=== PATIENT | male | born 1945 | race Caucasian/White ===

== ENCOUNTER → 2016-10-29 12:48 | Outpatient (CLI) | payer MEDICARE, OTHER ==
[2010-03-21 09:24] VITALS: BMI 38.3
== END | disposition home or self-care (01) ==
LOC: D.RT 12:48
DX: J45.909 Unspecified asthma, uncomplicated (principal)

== ENCOUNTER → 2017-01-22 11:30 | Outpatient (CLI) | payer MEDICARE, OTHER ==
[2010-03-21 09:24] VITALS: BMI 38.3
== END | disposition home or self-care (01) ==
LOC: D.CT 11:30
DX: I65.23 Occlusion and stenosis of bilateral carotid arteries (principal)

== ENCOUNTER 2017-02-16 07:57 | Outpatient (CLI) | payer MEDICARE, OTHER ==
[~2017-02-16] VITALS: Ht 182.9 cm; Wt 128.2 kg
--- NOTE | ~2017-02-16 | HEMODYNAMI ---
PATIENT:PARADISE BAR MEDICAL RECORD: [id number] : 49 LOCATION:D.CAT ADMISSION DATE: 02/16/17 Generatedon:02/16/201711:13 Patient name: PARADISE BAR Patient #: [id number] SSN: : 1945 Date of study: 02/16/2017 Page: Of Hemodynamic Procedure Report Patient Data Patient Demographics Procedure consent was obtained First Name: PARADISE Gender: Male Last Name: YOSVANY : 1945 [facility] Initial: C Age: 71 year(s) Patient #: [id number] Race: Additional ID: [id number] Contact details Address: [place] [address] State: [place] City: [place] Zip code: [address] Past Medical History Allergies Allergen Reaction Date Comments Reported Other allergy 02/16/2017 cRESTOR, gABAPENTIN, PREDNISONE Admission Admission Data Admission Date: 02/16/2017 Admission Time: 7:57 Admit Source: Other Insurance Payor: Medicare Room #: [facility] #: [id number] Height (in.): 72 BSA: 2.46 (m2) Height (cm.): 182.88 BMI: 38.11 (kg/m2) Weight (lbs.): 281 Weight (kg.): 127.46 Medications upon Admission Medications Dosage Times Administered Last Remarks per Delivery Day Date and Time Aspirin (any) Lab Results Lab Result Date: 02/16/2017 Lab Result Time: 0:00 Biochemistry Name Units Result Min Max BUN mg/dl 11 --(-*--)-- 7 18 Creatinine mg/dl 1.2 --(---*)-- 0.6 1.3 CBC Name Units Result Min Max Hemoglobin g/dl 14.1 --(*---)-- 13.5 17.5 Procedure Procedure Types Cath Procedure Diagnostic Procedure [facility] w/Coronaries FFR/IVUS Intra-Coronary IVUS Initial IVUS Additional x2 PCI Procedure Coronary Stent Initial Procedure Description Procedure Date Procedure Date: 02/16/2017 Procedure Start Time: 10:37 Procedure End Time: 11:11 Procedure Staff Name Function Albaro Grady MD Performing Physician Abigail Perez RT Scrub Jeanna Palmer RN Nurse Johan Davis RT Monitor Procedure Data Cath Procedure Fluoroscopy Diagnostic fluoroscopy Total fluoroscopy Time: 5 time: 5 min min Diagnostic fluoroscopy Total fluoroscopy dose: dose: 1318 mGy 1318 mGy Contrast Material Contrast Material Type Amount (ml) Isovue 300 131 Entry Location Entry Primary Successful Side Size Upsize Upsize Entry Closure Succes sful Closure Location (Fr) 1 (Fr) 2 (Fr) Remarks Device Remarks Femoral Right 5 Fr 6 Fr Exoseal artery Short Estimated blood loss: 10 ml Diagnostic catheters Device Type Used For End Catheter Placement Cordis 5Fr Pigtail Procedure Catheter (MP) Cordis 5Fr JL 4.0 Procedure Catheter (MP) Cordis 5Fr 3DRC Catheter Procedure (MP) Procedure Medications Medication Administration Route Dosage Oxygen NC 2 l/min Lidocaine 2% added to field 20 Heparin Flush Bag added to field 2 bags (1000units/500ml NS) 0.9% NaCl I.V. 100 ml/hr Versed I.V. 1 mg Fentanyl I.V. 50 mcg Versed I.V. 1 mg Fentanyl I.V. 50 mcg Versed I.V. 1 mg Fentanyl I.V. 50 mcg Radial Cocktail added to field 1 syringe (Verapomil 2mg/Nitro 400mcg/Heparin 1500units) Versed I.V. 1 mg Fentanyl I.V. 50 mcg Heparin Bolus I.V. 4000 units Plavix P.O. 75 mg Hemodynamics Rest BSA: 2.46 (m2) HGB: 14.1 (g/dl) O2 Consumption: Estimated: 273.87 (ml/min) O2 Co nsumption indexed: Estimated:111.33 (ml/min/m) Heart Rate: 58 (bpm) Pressure Samples Time Site Value (mmHg) Purpose Heart Use Rate(bpm) 10:44 LV 94/23,44 Snapshot 67 Snapshots Pre Cath Intra NCS Post Cath Vital Signs Time Heart Resp SPO2 etCO2 [id number] NIBP (mmHg) Rhythm Pain Sedation Rate (ipm) (%) (mmHg) (mmHg) Status Level (bpm) 10:16:01 56 18 92 0 0 124/69(96) NSR 0 (11) 10(A) , No pain 10:20:13 56 20 94 0 0 126/71(93) NSR 0 (11) 10(A) , No pain 10:24:31 58 18 93 0 0 141/59(76) NSR 0 (11) 10(A) , No pain 10:28:43 61 18 94 0 0 129/67(80) NSR 0 (11) 10(A) , No pain 10:32:57 59 25 92 0 0 122/72(96) NSR 0 (11) 10(A) , No pain 10:37:05 59 30 94 0 0 124/82(107) NSR 0 (11) 10(A) , No pain 10:41:11 61 25 93 0 0 118/91(105) NSR 0 (11) 9(A) , No pain 10:45:21 62 25 93 0 0 127/70(105) NSR 0 (11) 9(A) , No pain 10:49:33 68 30 94 0 0 133/79(109) NSR 0 (11) 9(A) , No pain 10:53:40 65 23 92 0 0 124/79(105) NSR 0 (11) 9(A) , No pain 10:57:52 63 23 94 0 0 114/75(97) NSR 0 (11) 9(A) , No pain 11:02:02 66 18 94 0 0 115/70(95) NSR 0 (11) 9(A) , No pain 11:06:12 63 32 93 0 0 122/70(94) NSR 0 (11) 10(A) , No pain 11:10:22 59 22 94 0 0 118/75(92) NSR 0 (11) 10(A) , No pain Medications Time Medication Route Dose Verified Delivered Reason Note s Effectiveness by by 10:14:23 Oxygen NC 2 l/min Albaro Meeks used for Miguel A Palmer tailor women's garment alteration 10:14:29 Lidocaine 2% added 20ml Albaro Irvin for local to vial Miguel A Grady MD anesthetic field 10:14:36 Heparin Flush added 2 bags Albaro Irvin used for Bag to Miguel A Grady MD procedure (1000units/500ml field NS) 10:14:46 0.9% NaCl I.V. 100 Albaro Meeks Per physician ml/hr Miguel A Palmer RN 10:35:57 Radial Cocktail added 1 Albaro Buffie not (Verapomil to syringe Miguel A Palmer RN used, 2mg/Nitro field femoral 400mcg/Heparin obtained 1500units) 10:36:30 Versed I.V. 1 mg Albaro Buffie for sedation Miguel A Palmer RN 10:36:34 Fentanyl I.V. 50 mcg Albaro Buffie for sedation Miguel A Palmer RN 10:38:52 Versed I.V. 1 mg Albaro Buffie for sedation Miguel A Palmer RN 10:38:56 Fentanyl I.V. 50 mcg Albaro Buffie for sedation Miguel A Palmer RN 10:43:46 Versed I.V. 1 mg Albaro Buffie for sedation Miguel A Palmer RN 10:43:50 Fentanyl I.V. 50 mcg Albaro Buffie for sedation Miguel A Palmer RN 10:47:29 Versed I.V. 1 mg Albaro Buffie for sedation Miguel A Palmer RN 10:47:33 Fentanyl I.V. 50 mcg Albaro Enriquezie for sedation Miguel A Palmer RN 10:54:16 Heparin Bolus I.V. 4000 Albarolenora Enriquezie for veri fied units Miguel A Palmer RN anticoagulation with dr grady 11:04:29 Plavix P.O. 75 mg Albaro Meeks for Miguel A Palmer RN antiplatelet therapy Procedure Log Time Note 9:55:16 Admit Source: Other 9:58:05 Patient Height : 72 cm 9:58:15 Patient Weight : 281 kg 9:58:16 Insurance Payor : Medicare 10:01:06 Diagnostic Cath Status : Elective 10:01:39 Abigail Perez RT(R) sent for patient. Start room use. 10:01:41 Time tracking: Regular hours 10:01:47 Plan of Care:Hemodynamics will remain stable., Cardiac rhythm will remain stable., Comfort level will be maintained., Respiratory function will remain adequate., Patient/ family verbilizes understanding of procedure., Procedure tolerated without complication., Recovers from procedure without complications.. 10:02:47 Patient allergic to Other allergycRESTOR, gABAPENTIN, PREDNISONE 10:02:57 Is the patient allergic to Iodine/contrast media? No. 10:14:23 Oxygen 2 l/min NC was administered by Buffie Palmer RN; used for procedure; 10:14:29 Lidocaine 2% 20ml vial added to field was administered by Albaro Grady MD; for local anesthetic; 10:14:36 Heparin Flush Bag (1000units/500ml NS) 2 bags added to field was administered by Albaro Grady MD; used for procedure; 10:14:46 0.9% NaCl 100 ml/hr I.V. was administered by Jeanna Palmer RN; Per physician; 10:14:56 Vital chart was started 10:15:04 Patient received from Pre/Post Procedure Room to CCL 1 Alert and oriented. Tansferred to table in Supine position. 10:20:27 Warm blankets applied, and latanya hugger turned on for patient comfort. 10:20:28 Correct patient and procedure confirmed by team. 10:20:30 Signed procedure consent form obtained from patient. 10:20:32 ECG and BP/O2 sat monitors applied to patient. 10:20:33 Baseline sample Acquired. 10:20:43 Rhythm: sinus bradycardia 10:20:52 Full Disclosure recording started 10:21:10 H&P Date Dictated: 02/02/2017 Within 30 days and on chart., H&P Addendum completed by physician on day of procedure. (MUST COMPLETE FOR ALL OUTPATIENTS). 10:21:13 Pre-procedure instructions explained to patient. 10:21:14 Pre-op teaching completed and patient verbalized understanding. 10:21:18 Family in waiting room. 10:21:21 Patient NPO since Midnight. 10:21:31 Is patient on blood thinner?Yes 10:21:35 ACC The patient was administered the following blood thiners within the last 24 hours: ACCPlavix 10:22:08 Patient diabetic? No. 10:22:17 ----Pre-sedation anethsthesia assessment.---- 10:22:20 Previous problem with sedation/anesthesia? No ? 10:22:21 Snore? Yes 10:22:24 Sleep apnea? Yes 10:22:26 Deviated septum? No 10:22:27 Opens mouth fully? Yes 10:22:28 Sticks out tongue? Yes 10:22:39 Airway obstruction? Yes ASTHMA 10:22:53 Dentures? No ? 10:22:58 Pre procedure: right dorsailis pedis pulse 1+ Palpable, but thready & weak; easily obliterated 10:23:04 Patient pain scale 0/10 ?. 10:23:17 IV patent on arrival in left wrist with 0.9% NaCl at O. 10::06 Lab Result : BUN 11 mg/dl 10:: Lab Result : Creatinine 1.2 mg/dl 10::06 Lab Result : Hemoglobin 14.1 g/dl 10::10 Lab results completed and on chart. 10::17 Right Radial & Right Groin area was prepped with chlora-prep and draped in sterile fashion 10:: Alarms reviewed by R. N. 10:26:24 Sharps counted by scrub and verified by R.N. 10:32:20 Zero performed for pressure channel P1 10:35:47 Use device set Radial Dx 10:35:49 Acist Syringe opened to sterile field. 10:35:49 Medline Cath Pack opened to sterile field. 10:35:50 Bag Decanter opened to sterile field. 10:35:51 St Asim 260cm J .035 wire opened to sterile field. 10:35:51 Acist Hand Control opened to sterile field. 10:35:52 Acist Manifold opened to sterile field. 10:35:52 Tegaderm 4 x 4 opened to sterile field. 10:35:57 Radial Cocktail (Verapomil 2mg/Nitro 400mcg/Heparin 1500units) 1 syringe added to field was administered by Jeanna Palmer RN; ; not used, femoral obtained 10:36:02 Procedure started. 10:36:07 Physician arrived 10:36:08 --------ALL STOP TIME OUT------ 10:36:08 Final Timeout: patient, procedure, and site verified with staff and physician. All members of the team are in agreement. 10:36:11 Right Radial & Right Groin site verified by team. 10:36:15 Physical assessment completed. ASA score P 2 - A patient with mild systemic disease as per Albaro Grady MD. 10:36:18 Sedation plan: IV Moderate Sedation Versed, Fentanyl 10:36:30 Versed 1 mg I.V. was administered by Jeanna Palmer RN; for sedation; 10:36:34 Fentanyl 50 mcg I.V. was administered by Jeanna Palmer RN; for sedation; 10:37:15 Local anesthetic to right radial artery with Lidocaine 2% by Albaro Grady MD.INITIAL ACCESS ONLY 10:38:52 Versed 1 mg I.V. was administered by Jeanna Palmer RN; for sedation; 10:38:56 Fentanyl 50 mcg I.V. was administered by Jeanna Palmer RN; for sedation; 10:41:42 UNABLE TO ACCESS THE RADIAL 10:42:33 Terumo 5Fr Omer Sheath opened to sterile field. 10:42:40 Local anesthetic to right femoral artery with Lidocaine 2% by Albaro Grady MD.ADDITIONAL ACCESS 10:42:53 Use device set Femoral Dx 10:43:18 Diagnostic Infinity 5Fr Multipack catheter opened to sterile field. 10:43:43 A 5 Fr sheath was inserted into the Right Femoral artery 10:43:46 Versed 1 mg I.V. was administered by Jeanna Palmer RN; for sedation; 10:43:50 Fentanyl 50 mcg I.V. was administered by Jeanna Palmer RN; for sedation; 10:43:52 A Cordis 5Fr Pigtail Catheter (MP) was advanced over the wire and used for Procedure. 10:44:22 LV hemodynamics recorded. 10:44:24 LV gram done using GORE 10:44:31 EF : 60 % 10:44:32 Catheter removed. 10:44:39 A Cordis 5Fr JL 4.0 Catheter (MP) was advanced over the wire and used for Procedure. 10:45:53 LCA angiography performed. 10:47:01 Catheter removed. 10:47:21 A Cordis 5Fr 3DRC Catheter (MP) was advanced over the wire and used for Procedure. 10:47:29 Versed 1 mg I.V. was administered by Jeanna Palmer RN; for sedation; 10:47:33 Fentanyl 50 mcg I.V. was administered by Jeanna Palmer RN; for sedation; 10:47:59 RCA angiography performed. 10:48:48 Catheter removed. 10:48:49 Proceeding to intervention. 10:49:25 Terumo 6Fr Omer Sheath opened to sterile field. 10:49:26 Merit BasixCompak Inflation Kit opened to sterile field. 10:49:26 Jaffe Whisper J 300cm 0.014 guide wire opened to sterile field. 10:49:53 Sheath upsized to a 6 Fr Short. 10:50:07 [place] IVUS Catheter opened to sterile field. 10:50:21 Cordis 6FR XBLAD 4.0 guide catheter opened to sterile field. 10:51:26 6 Fr XBLAD 4 guide catheter was inserted over the wire 10:52:32 WHISPER wire advanced. 10:52:55 Procedure type changed to Cath procedure, Diagnostic procedure, LHC, LHC w/Coronaries, FFR/IVUS, Intra-Coronary IVUS Initial, IVUS Additional x2, PCI procedure, Coronary Stent Initial 10:52:59 FFR/IVUS 10:53:00 IVUS catheter advanced over wire. 10:53:05 Wire advanced across lesion. 10:54:08 IVUS pass to LMCA lesion performed. 10:54:11 IVUS catheter removed over wire. 10:54:16 Heparin Bolus 4000 units I.V. was administered by Jeanna Palmer RN; for anticoagulation; verified with dr grady 10:57:42 Wire redirected to CIRCUMFLEX. 10:57:49 IVUS catheter advanced over wire. 10:57:52 IVUS pass to Circ lesion performed. 10:57:53 Wire redirected to LAD. 10:58:00 IVUS catheter advanced over wire. 10:58:04 IVUS pass to LAD lesion performed. 10:58:07 IVUS catheter removed over wire. 10:59:08 Inflation Number: 1 A Biofreedom 3.5 x 18 stent (No Cost Implant) was prepped and advanced across the Prox LAD. The stent was deployed at 13 GEGE for 0:10 (min:sec). 10:59:18 Stent catheter was removed intact over wire. 10:59:19 Wire removed. 10:59:20 Guide catheter removed. 10:59:33 Cordis 6Fr Exoseal opened to sterile field. 10:59:49 Sheath removed intact; hemostasis achieved with Exoseal to the Right Femoral artery. 11:04:14 Procedure ended.(Physican Out) 11:04:29 Plavix 75 mg P.O. was administered by Jeanna Palmer RN; for antiplatelet therapy; 11:05:13 Fluoroscopy time 05.00 minutes. 11:05:21 Fluoroscopy dose: 1318 mGy 11:05:21 Flurop Dose total: 1318 11:05:29 Contrast amount:Isovue 300 131ml. 11:05:32 Sharps counted by scrub and verified by R.N. 11:05:35 Insertion/operative site no bleeding no hematoma. 11:05:38 Post-op/insertion site Right Femoral artery dressed using a 4 x 4 and Tegaderm. 11:05:46 Post right femoral artery:stable 11:05:49 Post Procedure Pulses reassessed and unchanged 11:05:53 Post-procedure physical assessment completed. ASA score P 2 - A patient with mild systemic disease as per Albaro Grady MD. 11:05:58 Post procedure rhythm: sinus rhythm 11:06:01 Estimated blood loss: 10 ml 11:07:03 Post procedure instruction explained to patient.Patient verbalizes understanding. 11:07:04 Patient needs reinforcement of post procedure teaching. 11:10:19 Procedure and supply charges have been captured, reviewed, submitted and are correct. 11:10:23 Vital chart was stopped 11:10:31 See physician's report for complete and final results. 11:10:33 Report given to Pre/Post Procedure Room. 11:11:03 Patient transfered to Pre/Post Procedure Room with Stretcher. 11:11:06 Procedure ended. 11:11:06 Full Disclosure recording stopped 11:11:10 End room use (Document Last) Intervention Summary Intervention Notes Time ActionType Lesion and Equipment Action# Pressure Duration Attributes Used 10:59:[address] stent Prox LAD Biofreedom 1 13 00:10 3.5 x 18 stent (No Cost Implant) Device Usage Item Name Manufacture Quantity Catalog Hospital Part Current Minimal Lot# / Number Charge Number Stock Stock Serial# Code Acist Acist 1 11083 502367 388655 962183 20 Syringe Medical Systems Inc Medline Cardinal 1 [id number] 318530 65377 691435 5 Cath Pack Health Bag Microtek 1 2001S 193156 24728 534727 [address] St Asim 1 706127 038277 137777 365793 30 260cm J .035 wire Acist Hand Acist 1 55112 285452 278779 726219 5 Control Medical Systems Inc Acist Acist 1 02342 391024 562084 226913 5 Manifold Medical Systems Inc Tegaderm 4 3M 1 1626W 009607 488629 292309 5 x 4 Terumo 5Fr Terumo 1 KET160 503515 823763 129251 40 Omer Sheath Diagnostic Cardinal 1 [id number] 209544 71148 599547 30 Infinity Health 5Fr Multipack catheter Cordis 5Fr Cardinal 1 723732 5 Pigtail Health Catheter (MP) Cordis 5Fr Cardinal 1 333931 5 JL 4.0 Health Catheter (MP) Cordis 5Fr Cardinal 1 400177 5 3DRC Health Catheter (MP) Terumo 6Fr Terumo 1 CTY015 115736 513857 893956 40 Omer Sheath Merit Merit 1 PU9625 018933 649018 020374 15 AUPEO! Medical Inflation Kit Jaffe Jaffe 1 [id number] 226653 492526 055899 5 Whisper J Vascular 300cm 0.014 guide wire [place] 1 [id number] 929090 079226 515610 8 [place] IVUS Catheter Cordis 6FR Cardinal 1 [id number] 795731 917298 885055 3 XBLAD 4.0 Health guide catheter Biofreedom Biosensors 1 [facility]2-3518 253131 056807 5 [id number] 3.5 x 18 [place] SA stent (No Cost Implant) Cordis 6Fr Cardinal 1 EX600 218815 717542 244362 10 [facility] Bio Signature Audit [place] Stage Time Signature Unsigned Intra-Procedure 02/16/2017 Johan Davis 11:12:56 AM RT(R) (CV) Signatures Monitor : Johan Davis RT Signature : Date : Time : [facility] [address] [place] [address]
[2017-02-16] MEDS ORDERED: BAYER CHEWABLE81 MG PO (08:20)
[2017-02-16] MEDS ORDERED: CELEXA40 MG PO (08:22)
[2017-02-16] MEDS ORDERED: FLOMAX0.4 MG PO (08:22)
[2017-02-16] MEDS ORDERED: PROTONIX40 MG PO (08:22)
[2017-02-16] MEDS ORDERED: COZAAR25 MG PO (08:23)
[2017-02-16] MEDS ORDERED: PEPCID40 MG PO (08:23)
[2017-02-16] MEDS ORDERED: PROSCAR5 MG PO (08:24)
[2017-02-16] MEDS ORDERED: HYDROCHLOROTHIA25 MG PO (08:24)
[2017-02-16] MEDS ORDERED: PAMELOR 25 MG C25 MG PO (08:25)
[2017-02-16] MEDS ORDERED: IBUPROFEN800 MG PO (08:26)
[2017-02-16] MEDS ORDERED: MIDRIN1 CA1 PO (08:26)
[2017-02-16] MEDS ORDERED: ZANTAC150 MG PO (08:27)
[2017-02-16] MEDS ORDERED: BREO ELLIPTA 21 EACH (08:27)
[2017-02-16] MEDS ORDERED: FISH OIL 1,0001 CA1 PO (08:27)
[2017-02-16] MEDS ORDERED: SPIRIVA18 MCG INH (08:28)
[2017-02-16] MEDS ORDERED: COMBIVENT RESPIM4 GM INH (08:28)
[2017-02-16] MEDS ORDERED: PLAVIX75 MG PO (08:31)
[2017-02-16 08:32] VITALS: BP 143/61; Ht 182.9 cm; Wt 128.2 kg
[2017-02-16 08:40] LABS: BASOPHILS 0.3 % (0-2); EOSINOPHILS 1.7 % (0-7); HEMATOCRIT 41.9 % (42.0-54.0); HEMOGLOBIN 14.1 g/dL (13.5-17.5); IMMATURE GRANULOCYTES 0.6 % (0-5); LYMPHOCYTES 24.5 % (15-50); MCH 30.6 pg (26.0-34.0); MCHC 33.7 g/dL (31.0-37.0); MCV 90.9 fL (80.0-100.0); MEAN PLATELET VOLUME 10.4 fL (7.4-10.4); NEUTROPHILS 62.9 % (40-80); PLATELET COUNT 208 10x3/uL (130-400); RBC 4.61 10x6/uL (4.20-6.10); RDW 13.4 % (11.5-14.5); WBC 7.1 10x3/uL (4.8-10.8)
[2017-02-16 09:09] LABS: ANION GAP 10.5 mmol/L (8-16); CALCIUM 9.6 mg/dL (8.5-10.1); CARBON DIOXIDE 29.2 mmol/L (21.0-32.0); CREATININE - SERUM 1.2 mg/dL (0.6-1.3); POTASSIUM - SERUM 3.7 mmol/L (3.5-5.1)
[2017-02-16 09:11] LABS: CREATINE KINASE 496 UL (21-232); TROPONIN-I < 0.017 ng/mL (0.000-0.060)
--- NOTE | 2017-02-16 11:33 | NUR ---
1125 RECEIVED PT FROM TRANSFER TABLE OPERATOR, PT DROWSY. DENIES ANY C/O. DRESSING TO RIGHT GROIN IS CDI, NO BLEEDING OR HEMATOMA NOTED. AREA IS SOFT AND NONTENDER. PEDAL PULSES PALPABLE. NORMAL SINUS RHYTHM ON MONITOR, PT DENIES ANY C/O CHEST DISCOMFORT. ON O2 AT 2 LPM VIA NC, SAT IS 96%. 1135 RIGHT GROIN STABLE WITH NO BLEEDING OR HEMATOMA NOTED. AREA IS SOFT AND NONTENDER. APPLE JUICE SERVED, FAMILY AT BEDSIDE. PT AND FAMILY INSTRUCTED THAT PT RECEIVED HIS DAILY PLAVIX DOSE IN TRANSFER TABLE OPERATOR TODAY SO WILL RESUME HOME PLAVIX TOMORROW AND VERBALIZE UNDERSTANDING.
--- NOTE | 2017-02-16 12:11 | NUR ---
1210 PT DENIES ANY C/O. VSS, AT BEDSIDE. PEDAL PULSES PALPABLE. CALL LIGHT IN REACH.
--- NOTE | 2017-02-16 12:30 | NUR ---
1230 RIGHT GROIN IS STABLE, PEDAL PULSES PALPABLE. VSS. CONTINUE POC.
--- NOTE | 2017-02-16 13:30 | NUR ---
1330 PT DENIES ANY C/O. HAS VOIDED 500 CC CLEAR YELLOW URINE USING URINAL. RIGHT GROIN REMAINS CDI, PEDAL PULSES PALPABLE. AT BEDSIDE. CALL LIGHT IN REACH. PT DENIES NEEDS AT THIS TIME.
--- NOTE | 2017-02-16 14:45 | NUR ---
1415 VSS, PT DENIES NEEDS, RIGHT GROIN STABLE, AREA SOFT AND NONTENDER WITH NO BLEEDING NOTED. 1445 HOB ELEVATED 45 DEGRESS, POST PROCEDURE EKG OBTAINED. PT DENIES ANY C/O AT THIS TIME. RIGHT GROIN IS STABLE, NO BLEEDING OR HEMATOMA. IV DC'D WITH CATH INTACT.
--- NOTE | 2017-02-16 16:27 | NUR ---
1500 PT DRESSED FOR DC TO HOME. REVIEWED DC INSTRUCTIONS WITH PT WHO VERBALIZES UNDERSTANDING. PLAVIX RX, EXOSEAL CARD AND WRITTEN INSTRUCTION SHEET TO PATIENT. PT ESCORTED TO PRIVATE AUTO VIA WC BY STAFF WITH DRIVING HIM HOME. PT DENIES ANY C/O UPON DC FROM UNIT.
== END 2017-02-16 15:00 | disposition home or self-care (01) ==
LOC: D.CATH 07:57
PROVIDERS: Internal Medicine Interventional Cardiology
DX: I25.119 Atherosclerotic heart disease of native coronary artery with unspecified angina pectoris (principal); Z00.6 Encounter for examination for normal comparison and control in clinical research program; I10 Essential (primary) hypertension; E78.5 Hyperlipidemia, unspecified; I65.23 Occlusion and stenosis of bilateral carotid arteries; Z01.812 Encounter for preprocedural laboratory examination; Z01.810 Encounter for preprocedural cardiovascular examination
CPT/HCPCS: 93458; 92978; 92979; C9600

== ENCOUNTER 2017-02-26 07:01 | Inpatient (IN) | payer MEDICARE, OTHER ==
[2017-02-26] VITALS (38 sets, daily range): BP systolic 126–142; BP diastolic 50–80; Ht 182.9 cm; Wt 128.6 kg
[~2017-02-26] VITALS: Ht 182.9 cm; Wt 128.6 kg
--- NOTE | ~2017-02-26 | OP ---
PATIENT NAME: PARADISE BAR MEDICAL RECORD: [id number] :49 LOCATION:B[facility] [id number] ADMISSION DATE:02/26/17 SURGEON: SATNAM CORTEZ MD OPERATION DATE: 02/26/17 SURGEON: Satnam Cortez M.D. ANESTHESIA: General endotracheal by Dr. Fernandez. PROCEDURE: Left carotid endarterectomy with patch angioplasty. PREOPERATIVE DIAGNOSIS: Severe left internal carotid artery stenosis. POSTOPERATIVE DIAGNOSIS: Severe left internal carotid artery stenosis. INDICATION FOR OPERATION: Severe symptomatic left internal carotid artery stenosis. FINDINGS OF OPERATION: Severe left internal carotid artery stenosis. There were no EEG changes with clamping or unclamping of the carotid artery. ESTIMATED BLOOD LOSS: Less than 150 mL. PROCEDURE IN DETAIL: After informed consent, adequate preoperative medication, and evaluation, the patient was brought to the operating room and placed stable in the supine position. After induction of general endotracheal anesthesia and application of appropriate monitoring devices, the left neck and chest were prepped and draped in sterile field utilizing Betadine scrub, alcohol, and Betadine solution. Betadine impregnated drape was also used. An oblique incision was made in the skin crease. Dissection carried down to the fascia. Hemostasis maintained with electrocautery. Facial vein was identified and divided utilizing sharp dissection. The common carotid, internal and external carotid arteries were dissected free of surrounding structures protecting the neurological structures. The patient was given a calculated dose of Heparin. After three minutes, clamps were applied. After two minutes, no EEG change. The arteriotomy was made and extended with Islas scissors. Artery underwent endarterectomy sharply. Artery underwent extensive debridement and irrigation. Utilizing a CorMatrix vascular patch and running 7-0 Prolene suture, the arteriotomy was closed with a patch angioplasty technique. All maneuvers to remove trapped air performed. The suture line was secured. Clamps removed sequentially. There were no EEG changes. Patient given a calculated dose of protamine to reverse the Heparin. Hemostasis was achieved. A #7 Jack-Greene drain was left in the depths of the wound and brought out through the base of the neck. Neck was again irrigated. Instrument count and sponge count were correct times two. Neck was closed in layers utilizing 3-0 Vicryl on the platysma and 5- 0 subcuticular Monocryl on the skin. Sterile dressings were applied. The patient tolerated the procedure well and was transferred to cardiovascular recovery in stable condition. OPERATIVE REPORT [id number] PARADISE BAR EDWARD MD CC: [id number] DICTATION DATE: 02/26/171199 DREDGE MASTER: BEBA 02/27/17 1856 ADM [place] [id number] [place] [id number]
[~2017-02-26 07:01] MED LIST: BAYER CHEWABLE81 MG PO; BREO ELLIPTA 21 EACH; CELEXA40 MG PO; COMBIVENT RESPIM4 GM INH; COZAAR25 MG PO; FISH OIL 1,0001 CA1 PO; FLOMAX0.4 MG PO; HYDROCHLOROTHIA25 MG PO; IBUPROFEN800 MG PO; MIDRIN1 CA1 PO; PAMELOR 25 MG C25 MG PO; PEPCID40 MG PO; PLAVIX75 MG PO; PROSCAR5 MG PO; PROTONIX40 MG PO; SPIRIVA18 MCG INH; ZANTAC150 MG PO
--- NOTE | 2017-02-26 07:40 | NUR ---
UP TO CHAIR AFTER ASSISTING TO BATHROOM. DENIES CURRENT NEEDS.
[2017-02-26 08:48] LABS: HEMATOCRIT 37.3 % (42.0-54.0); HEMOGLOBIN 12.2 g/dL (13.5-17.5); MCH 29.9 pg (26.0-34.0); MCHC 32.7 g/dL (31.0-37.0); MCV 91.4 fL (80.0-100.0); MEAN PLATELET VOLUME 10.4 fL (7.4-10.4); RBC 4.08 10x6/uL (4.20-6.10); RDW 13.5 % (11.5-14.5)
[2017-02-26 08:59] LABS: APTT 32.5 SECONDS (22.8-39.4); INR 1.03 (0.85-1.17); PROTIME 13.3 SECONDS (11.6-15.0)
[2017-02-26 09:04] LABS: ALBUMIN 3.5 g/dL (3.4-5.0); ANION GAP 10.4 mmol/L (8-16); BILIRUBIN - TOTAL 0.66 mg/dL (0.2-1.3); CALCIUM 8.9 mg/dL (8.5-10.1); CARBON DIOXIDE 30.4 mmol/L (21.0-32.0); CREATININE - SERUM 1.2 mg/dL (0.6-1.3); POTASSIUM - SERUM 3.8 mmol/L (3.5-5.1)
[2017-02-26] MEDS ORDERED: CRESTOR20 MG PO (09:05)
[2017-02-26] MEDS ORDERED: ZOMIG5 MG PO (09:06)
[2017-02-26 09:07] LABS: APPEARANCE CLEAR (CLEAR); BACTERIA FEW /hpf (NONE SEEN); BILIRUBIN NEGATIVE (NEGATIVE); COLOR YELLOW (YELLOW); EPITHELIAL CELLS 0-5 /hpf (0-5); GLUCOSE NEGATIVE (NEGATIVE); KETONE NEGATIVE (NEGATIVE); LEUKOCYTE ESTERASE NEGATIVE (NEGATIVE); NITRITE NEGATIVE (NEGATIVE); PROTEIN NEGATIVE (NEGATIVE); RED CELLS - URINE 0-5 /hpf (0-5); SPECIFIC GRAVITY 1.015 (1.005-1.020); UROBILINOGEN NORMAL (NORMAL); WHITE CELLS - URINE RARE /hpf (0-5)
[2017-02-26 09:08] LABS: MUCUS <1+ /lpf (NONE SEEN)
--- NOTE | 2017-02-26 12:32 | NUR ---
PT REMAINS UP IN CHAIR FOR LUNCH.
--- NOTE | 2017-02-26 14:37 | NUR ---
INVOS MONITOR READING: L-86 , R- 82.
--- NOTE | 2017-02-26 14:47 | NUR ---
RECIEVED PT TO ROOM FROM OR. CONNECTED TO ICU MONITORS. APPLIED ICE TO LEFT CAROTID. NUERO CHECKS COMPLETED WITH NO ISSUES NOTED. BOSSMAN DRAIN TO LEFT UPPER CHEST DRAINING BLOODY OUTPUT. BULB IS COMPRESSED. FULL ASSESSMENT COMPLETE PER FLOWSHEET. WILL RECOVER PT.
--- NOTE | 2017-02-26 15:00 | NUR ---
FAMILY AT BEDSIDE. UPDATE PROVIDED.
--- NOTE | 2017-02-26 16:15 | NUR ---
STARTED ON CLEVIPREX DUE TO PT MAXING OUT ON NITRO. PRN DOSE OF LOPRESSOR GIVEN. WILL CONT TO TITRATE MEDICATION ACCORDINGLY.
--- NOTE | 2017-02-26 19:15 | NUR ---
REPORT RECVD. CARE ASSUMED. INITIAL ASSMNT COMPLETED. SEE FLOWSHEET FOR ALL FINDINGS. AWAKE AMD AOX4. PERRLA NOTED. MAEW. NEURO CHECK INTACT. RESP EVEN AND UNLABORED. LUNGS DIM IN BASES. SPO2 94% ON O2 AT 8 LPM OXYMIZER. SR ON THE MONITOR. PULSES PALP. RIGHT RADIAL A-LINE ZEROED AND BALANCED WITH GOOD WAVE FORM SEEN. SYS B/P WITHIN PARAMETERS. CLEVIPREX GTT TITRATION IN USE. AFEBRILE. TEDS/SCDS IN USE. ABD SOFT, BSA X4. F/C PATENT TO CRITICORE. LEFT NECK INCISION CDI. MINIMAL EDEMA NOTED. REPOSITIONED FOR COMFORT. HOB UP. C/L IN REACH. BED ALARM ON. CONT CURRENT POC.
--- NOTE | 2017-02-26 21:15 | NUR ---
FAMILY AT BEDSIDE. UPDATE GIVEN. TEACHING COMPLETED. TURNED AND REPOSITIONED PT. PRN TRAMADOL PROVIDED FOR PAIN CONTROL. SYS B/P WITHIN PARAMETERS. HOB UP. C/L IN REACH. NEURO INTACT. CONT CURRENT POC.
--- NOTE | 2017-02-26 23:15 | NUR ---
REASSESSMENT COMPLETED. SEE FLOWSHEET FOR ALL FINDINGS. RESTING.AOX4. PERRLA NOTED. MAEW. NEURO CHECK INTACT. RESP EVEN AND UNLABORED. LUNGS DIM IN BASES. SPO2 94% ON O2 AT 8 LPM OXYMIZER. SR ON TH MONITOR. PULSES PALP. RIGHT RADIAL A-LINE UBTACT WITH GOOD WAVE FORM SEEN. SYS B/P WITHIN PARAMETERS. CLEVIPREX GTT TITRATION IN USE. AFEBRILE. TEDS/SCDS IN USE. ABD SOFT, BSA X4. F/C PATENT TO CRITICORE. LEFT NECK INCISION CDI. MINIMAL EDEMA NOTED. REPOSITIONED FOR COMFORT. HOB UP C/L IN REACH. BED ALARM ON. CONT CURRENT POC.
[2017-02-27] VITALS (61 sets, daily range): BP systolic 108–146; BP diastolic 50–68
--- NOTE | 2017-02-27 01:15 | NUR ---
REPOSITIONED FOR COMFORT. VSS. DENIES NEEDS. VSS. HOB UP. C/L IN REACH. CONT POC.
--- NOTE | 2017-02-27 03:15 | NUR ---
REASSESSMENT COMPLETED. SEE FLOWSHEET FOR ALL FINDINGS. RESTING.AOX4. PERRLA NOTED. MAEW. NEURO CHECK INTACT. RESP EVEN AND UNLABORED. LUNGS DIM IN BASES. SPO2 94% ON O2 AT 8 LPM OXYMIZER. SR ON THE MONITOR. PULSES PALP. RIGHT RADIAL A-LINE UBTACT WITH GOOD WAVE FORM SEEN. SYS B/P WITHIN PARAMETERS. CLEVIPREX GTT TITRATION IN USE. AFEBRILE. TEDS/SCDS IN USE. ABD SOFT, BSA X4. F/C PATENT TO CRITICORE. LEFT NECK INCISION CDI. MINIMAL EDEMA NOTED. REPOSITIONED FOR COMFORT. HOB UP C/L IN REACH. BED ALARM ON. CONT CURRENT POC.
--- NOTE | 2017-02-27 05:00 | NUR ---
REPOSITIONED. VSS. CLEVIPREX GTT TITRATION IN PLACE. HOB UP. C/L IN REACH. CONT POC.
--- NOTE | 2017-02-27 07:00 | NUR ---
BOSSMAN PULLED PER СВЕТЛАНА PARKS.
--- NOTE | 2017-02-27 11:29 | HP ---
PATIENT: PARADISE BAR MEDICAL RECORD: [id number] ACCOUNT: [id number] LOCATION:[facility]07 : 49 ADMISSION DATE: 02/26/17 HISTORY AND PHYSICAL EXAMINATION NamePARADISE BAR (71yo, M) ID# [id number]. Date/Time02/18/2017 10:[id number] Dept.NP_[facility] ClinicProviderEDTOO CORTEZ MDInsuranceMed Primary: [place] Insurance # : [id number] PCP : PRISCILLA HERNANDEZ Referring Provider Name : PRISCILLA HERNANDEZ Employer Name : RETIRED Med Secondary: FOR LIFE ( - MEDICARE SUPPLEMENT) Insurance # : [id number] Referring Provider Name : PRISCILLA HERNANDEZ Employer Name : RETIRED Prescription: ESI1 - Member is eligible. Chief Complaint Followup: Carotid atherosclerosis Patient's Care Team Primary Care Provider (): PRISCILLA HERNANDEZ: [address] [place] [address], , Referring Provider (): PRISCILLA HERNANDEZ: [address] [place] [address], , Patient's Pharmacies [facility] ([facility]): [address] [place] [address] [address] [facility] [address], , [facility] (PHARMACY): [address] [place] [address], , Vitals BP:122/70 sitting R arm 02/18/2017 11:38 amHR:80irreg 02/18/2017 11:38 amHt:6 ft 02/18/2017 11:24 amWt:282 lbs 02/18/2017 11:38 amBMI:38.2 02/18/2017 11:38 amAllergies Reviewed Allergies HYDROCODONEINFLUENZA VIRUS VACCINESMORPHINEOXYCODONEPREDNISONEMedications Reviewed Medications aspirin 81 mg chewable tablet Chew 1 tablet(s) every day by oral route.08/19/15 enteredStdaniel CarterBreo Ellipta 200 mcg-25 mcg/dose powder for inhalation Inhale 1 puff(s) every day by inhalation route for 90 days.12/31/15 Deedee Lawrenceiprofloxacin 500 mg otjrrb13/06/17 filledMEDCOcitalopram 20 mg tablet Take 1 tablet(s) every day by oral route.08/19/15 enteredStepsanti Carterclopidogrel 75 mg tablet Take 1 tablet(s) every day by oral route.02/02/17 filledMEDCOdiazePAM 2 mg tablet TK 1 T PO QHS01/08/17 filledsurescriptsdoxycycline monohydrate 100 mg jreqscq73/02/17 filledMEDCOfinasteride 5 mg tablet Take 1 tablet(s) every day by oral route.08/19/15 enteredStdaniel CarterhydroCHLOROthiazide 25 mg tablet Take 1 tablet(s) every day by oral route. Internal Note: WITH TRIAM 37. enteredStepsanti CarterAtqbxdybprqhvgtdvsvh-pfebrmgpxswnf-vfzezcsqmynky 65 mg-100 mg-325 mg capsule TAKE 2 CAPSULES BY ORAL ROUTE TO START, THEN 1 CAPSULE EVERY HOUR UNTIL RELIEF, NOT TO EXCEED 5 CAPSULES WITHIN A 12 HOUR XQUPVL52/21/16 filledMEDCOlosartan 25 mg tablet Take 1 tablet(s) every day by oral route.08/19/15 enteredStephar[facility] hospital[facility] HISTORY AND PHYSICAL [id number] PARADISE BAR Throwermethocarbamol 750 mg tablet Take 1 tablet(s) every 4 hours by oral route.08/19/15 enteredStepsanti WongwermethylPREDNISolone 4 mg tablets in a dose pack09/24/16 filledMEDCOnaproxen 500 mg /19/17 filledMEDCOomeprazole 20 mg tablet,delayed release Take by oral route.08/19/15 enteredStdaniel WongwerraNITIdine 150 mg blynza36/26/17 filledMEDCOrosuvastatin 10 mg mqtjmo22/14/17 filledMEDCOSingulair 10 mg tablet Take 1 tablet(s) every day by oral route for 90 days.03/04/16 KOBI Lawrencepiriva Respimat 1.25 mcg/actuation solution for inhalation Inhale 2 puff(s) every day by inhalation route for 30 days.09/02/16 filledMEDCOtamsulosin 0.4 mg capsule Take 1 capsule(s) every day by oral route.08/19/15 entereddaniel JudithelsaZOLMitriptan 5 mg bijuok67/07/17 filledMEDCOVaccines Reviewed Vaccines ALLERGIC TO FLU VACCINE Problems Reviewed Problems Obstructive sleep apnea syndrome Carotid atherosclerosis - Onset: 01/25/2017 Allergic rhinitis Asthma Chronic obstructive lung disease Gastroesophageal reflux disease Diverticular disease Arthritis Diastasis recti Dyspnea Mantoux: positive Family History Discussed Family History Mother- Family history of cancer ( age: 82) - Stomach CANCERFather- Kidney disease ( age: 87) - Renal failureSister- Malignant neoplastic disease - Hreast CA, Skin CABrother- Heart disease - Gout, Skin CA, Prostate CASocial History Discussed Social History General and Meaningful Use - Optional Occupation: retired Marital status: Exercise level: None Diet: Regular Smoking Status: Former smoker Smoker (2 PPD) (Notes: QUIT IN 2000) Alcohol intake: None Caffeine intake: Moderate Chewing tobacco: none Tobacco-years of use: 32 Deaf or serious difficulty hearing: Y Blind or serious difficulty seeing: N Difficulty concentrating, remembering or making decisions: N Difficulty walking or climbing stairs: N Difficulty dressing or bathing: N HISTORY AND PHYSICAL [id number] PARADISE BAR Difficulty doing errands alone: N Surgical History Reviewed Surgical History Other - 2014 - LEFT SHOULDER Other - 2011 - LT KNEE Other - 2004 - STENT Other - 1981 - HERNIA Rt toe Past Medical History Discussed Past Medical History Asthma: Y - Heart Disease: Y - CAD GERD: N - REFLUX Notes: sleep disorder, ELROY Documents for Discussion N/A Screening None recorded. HPI Cerebral Vascular Disease Reported by patient. Quality: dizziness; blurred vision; "heart cath yesterday. stent placed." severe left internal carotid artery stenosis ROS Patient reports difficulty hearing but reports no ear pain. He reports snoring, dry mouth, and mouth ulcer but reports no sore throat, no bleeding gums, and no teeth problems. He reports shortness of breath when walking but reports no chest pain, no arm pain on exertion, no palpitations, and no known heart murmur. He reports shortness of breath but reports no cough and no coughing up blood. He reports urinary loss of control, difficulty urinating, increased urinary frequency, and hematuria. He reports itching, dry skin, and growths/lesionsbut reports no abnormal mole, no jaundice, and no rashes. He reports weakness, numbness, frequent or severe headaches, migraines, and restless legs but reports no loss of consciousness, no seizures, and no dizziness. He reports sleep disturbances but reports no depression, feeling safe in relationship, and no alcohol abuse. He reports fatigue. He reports swollen glands but reports no bruising. He reports sinus pressure but reports no runny nose, no hives, and no frequent sneezing. He reports no fever, no night sweats, no significant weight gain, no significant weight loss, and no exercise intolerance. He reports no dry eyes, no irritation, and no vision change. He reports no frequent nosebleeds and no nose/sinus problems. He reports no jugular vein distension and no swollen glands. He reports no vomiting, normal appetite, no diarrhea, not vomiting blood, no nausea, and no constipation. He reports no muscle aches, no muscle weakness, no arthralgias/joint pain, no back pain, and no swelling in the extremities. ROS as noted in the HPI Physical Exam Patient is a 71-year-old male. Constitutional: General Appearance: morbidly obese. Level of Distress: no acute distress. Ambulation: ambulating normally. Ears: Cerumen negative. Canal: no erythema or swelling. Tympanic Membrane: no bulging or fluid and perforated. HISTORY AND PHYSICAL [id number] PARADISE BAR Nasal: Nasal Mucosa: no discharge, pink and moist, and irritated. Septum: not markedly deformed. Oropharynx: Lips, Teeth, and Gums normal dentition and lips. Oral Mucosa no ulcer, mass, inflammation, swelling, or leukoplakia and moist. Palate: normal hard palate and soft palate. Tongue: no erythema, les ions, enlargement, or swelling. Tonsils: no enlargement or lesions. Posterior Pharynx no enlargement, erythema, exudate, ulcers, mass, cobblestoning, or white patches. Neck: Neck: supple, trachea midline, no masses, and Full ROM. Thyroid: no enlargement or nodules and non-tender. Jugular Veins: no jugular venous distention or grant a waves present and normal jugular venous pressure; no carotid bruit. Lungs: Respiratory effort: unlabored. Inspection: normal curve and chest wall expansion; no deformity, tenderness, or swelling; and tactile fremitus present and equal on both sides. Auscultation: no wheezing, rales/crackles, or rhonchi and breath sounds normal. Percussion: no dullness, flatness, or hyperresonance. Cardiovascular: Precordial Exam: non displaced focal PMI. Heart Rate And Rhythm: normal heart rate and rhythm. Heart Sounds: no gallop, click, physiologically split S2, or pericardial friction rub and normal s1. Systolic Murmur: no systolic murmurs. Diastolic M urmur: no diastolic murmurs. Observation/Palpation of peripheral vascular system: no cyanosis or varicosity changes and normal dorsalis pedis and posterior tibialis. Abdomen: Inspection and Palpation: no tenderness or masses and soft and non-distended. Liver: non-tender and no hepatomegaly. Spleen: non-tender and no splenomegaly. Bowel Sounds: normal and no abdominal bruits. Lymphatic: no cervical lymph enlargement, axillary LAD, inguinal LAD, femoral LAD, supraclavicu lar LAD, or popliteal LAD. Musculoskeletal:: Motor Strength and Tone: normal bulk, tone, and motor strength. Gait and Station: normal gait, station, and tandem gait. Joints, Bones, and Muscles: no contractures, malalignment, tenderness, scoliosis, kyphosis, or bony abnormalities and limited ROM; Lt knee. Extremities: Inspection/Palpation of digits and nails: no clubbing, cyanosis, petechiae, ischemia, edema, or nodular lesions. Skin: Inspection and palpation: no rash, lesions, jaundice, ulcer, erythema, or induration and normal turgor. Neurologic: Mental Status/Orientation: oriented to person, place, problem/situation, and time. Mood/Affect: normal mood and affect. Sensation sensation normal. Cranial Nerves cranial nerves II - XII intact. Deep Tendon Refl exes upper extremities positive and lower extremities positive. Assessment / Plan severe left internal carotid artery stenosis Recent LAD stent 1. Carotid atherosclerosis I65.23: Occlusion and stenosis of bilateral carotid arteries CAROTID STENOSIS: CARE INSTRUCTIONS HISTORY AND PHYSICAL [id number] PARADISE BAR Discussion Notes patient underwent placement of a stent Dr. Sun and he is doing well post procedure. I have discussed his left carotid artery disease with him in detail as well as the alternative methods of treatment. We discussed left carot id endarterectomy including benefits and risks which include bleeding, infection, stroke, , and the imponderables or he understands all the above and wishes to proceed with surgery. KATARINA CORTEZ MD at 1129 CC: [id number] DICTATION DATE: 02/18/17 1045 FARM CONSULTANT: BEBA 02/24/17 1052 ADM IN [place] [address] [place] [address]
--- NOTE | 2017-02-27 15:14 | NUR ---
0715-RECIEVED AWAKE AND ALERT- AT [facility]-NOTED PT HIGH ANXIETY-AGREED FOR TO SIT WITH PT-NOTED PTSD DIAGNOSIS-CLEVIPREX TITRATED FOR PARAMETER-L NECK SOFT TO TOUCH-NOTED HEMATOMA-NOTED SANDBAG TO J RICCI SITE-SITE CHECKED-HEMOSTASIS OBTAINED-DRG IN PLACE-LEFT SANDBAG OFF -R RADIAL HANNY IN PLACE-WITH GOOD WAVE FORM 1030-DR CORTEZ AT [facility]-ORDERS RECIEVED AND NOTED- R RADIAL HANNY D/C'D PER PROTOCOL-TIP IN TACT-1 SUTURE REMOVED-HEMOSTASIS NOTED AND NO BRUISING AT THIS TIME NOTED- GREER CATH D/C'D WITH TIP INTACT-TOLERATED WELL--ASSISTED TO [facility] CHAIR -ROSENTHAL=X4-SLIGHT DIZZINESS [id number] GTT TITRATED OFF PER PARAMETERS 1330-REMAINS UP IN CHAIR 1500-AMBULATED IN UNIT WITH O2 AT 5L OXIMYZER
--- NOTE | 2017-02-27 19:15 | NUR ---
SHIFT ASSESSMENT COMPLETE, SEE SHIFT ASSESSMENT FOR DETAILS. PATIENT IS ALERT AND ORIENTED X4, SPEECH IS CLEAR. INCISION ON LEFT NECK IS COVERED WITH DRESSING AND IS C/D/I. S1S2 NOTED WITH NSR ON MONITOR OF A RATE OF 66. LUNG SOUNDS CLEAR, DIMINISHED AT BASE. RR EVEN AND NONLABORED. BOWEL SOUNDS ACTIVE. DENIES TROUBLE VOIDING. RIGHT SUBCLAVIAN CL DRESSING C/D/I WITH NO REDNESS OR SWELLING. OLD BOSSMAN DRAIN SITE COVERED WITH 4X4 AND IS INTACT WITH SMALL AMOUNT OF BLOODY DRAINAGE NOTED. PERIPHERAL PULSES +2. BP INSIDE PARAMATERS. WILL MONITOR.
--- NOTE | 2017-02-27 19:45 | NUR ---
PATIENT REQUESTED TO WALK, WALKED APPROXIMATELY 300 FEET WITHOUT ASSISST. DENIED SOB OR DIZZINESS. WHEN FINISHED 02 SAT WAS 94%. PATIENT VERY SATISFIED WITH PROGRESS. PLACED BACK ON MONITOR. VSS.
--- NOTE | 2017-02-27 21:00 | NUR ---
NIGHT MEDS GIVEN WITHOUT DIFFICULTY, VSS. WILL MONITOR.
--- NOTE | 2017-02-27 22:20 | NUR ---
PRN LOPRESSOR GIVEN FOR SYSTOLIC BP > 140.
--- NOTE | 2017-02-27 23:00 | NUR ---
REASSESSMENT COMPLETE, NO ACUTE CHANGES. PATIENT ALERT AND ORIENTED X4, O2 @ 2L AND SATS 96%. RR EVEN AND NONLABORED. S1S2 WITH NSR ON MONITOR. PERIPHERAL PULSES +2, INCISION ON LEFT NECK C/D/I. OLD BOSSMAN DRAIN SITE ON LEFT CHEST DRESSING CHANGED AND CLEANED WITH BETADINE. VSS, WILL MONITOR.
[2017-02-28] VITALS (12 sets, daily range): BP systolic 128–150; BP diastolic 59–73
--- NOTE | 2017-02-28 01:05 | NUR ---
PATIENT DENIES NEED AT THIS TIME. VSS.
--- NOTE | 2017-02-28 03:05 | NUR ---
REASSESSMENT COMPLETE, NO CHANGES. SEE REASSESSMENT FLOWSHEET FOR DETAILS. PATIENT DENIES NEED, VSS.
[2017-02-28] MEDS ORDERED: NORVASC10 MG PO (12:36)
[2017-02-28] MEDS ORDERED: ULTRAM50 MG PO ×2 (12:37→12:46)
--- NOTE | 2017-02-28 13:19 | NUR ---
1230-DR CORTEZ AT [facility]--ORDERS RECIEVED AND NOTED-R CVL D/C'D PER PROTOCOL-HEMOSTASIS OBTAINED-DISCHARGE INSTRUCTIONS GIVEN-TO AND
== END 2017-02-28 13:51 | disposition home or self-care (01) | DRG 39 ==
LOC: D.CVICU 07:01 → D.SDCHOLD 07:01 → D.CVICU 12:16
PROVIDERS: ADMIT Internal Medicine Cardiovascular Disease
PROC: 03UL0JZ Supplement Left Internal Carotid Artery with Synthetic Substitute, Open Approach (ICD-10-PCS; 2017-02-26)
PROC: 03CL0ZZ Extirpation of Matter from Left Internal Carotid Artery, Open Approach (ICD-10-PCS; principal; 2017-02-26 11:15)
DX: I65.23 Occlusion and stenosis of bilateral carotid arteries (principal); J44.9 Chronic obstructive pulmonary disease, unspecified; J45.909 Unspecified asthma, uncomplicated; K21.9 Gastro-esophageal reflux disease without esophagitis; I10 Essential (primary) hypertension; G47.33 Obstructive sleep apnea (adult) (pediatric)

== ENCOUNTER → 2017-03-26 12:52 | Outpatient (CLI) | payer MEDICARE, OTHER ==
[2017-02-26 16:19] VITALS: BMI 38.4
[~2017-03-26 12:52] MED LIST changes: +CRESTOR20 MG PO; +NORVASC10 MG PO; +ULTRAM50 MG PO; +ZOMIG5 MG PO
== END | disposition home or self-care (01) ==
LOC: D.US 12:52
DX: M79.604 Pain in right leg (principal); M79.605 Pain in left leg; R60.0 Localized edema

== ENCOUNTER → 2017-04-09 10:31 | Outpatient (CLI) | payer MEDICARE, OTHER ==
[2017-02-26 16:19] VITALS: BMI 38.4
== END | disposition home or self-care (01) ==
LOC: D.MRI 10:31
DX: G43.B0 Ophthalmoplegic migraine, not intractable (principal)

== ENCOUNTER → 2017-04-22 10:04 | Outpatient (CLI) | payer MEDICARE, OTHER ==
[2017-02-26 16:19] VITALS: BMI 38.4
--- NOTE | 2017-04-23 13:52 | EC ---
PATIENT:PARADISE BAR DATE OF SERVICE: 04/22/17 SEX: M MEDICAL RECORD: [id number] DATE OF : 49 LOCATION:[facility] AGE OF PATIENT: 71 ADMISSION DATE: 04/22/17 REFERRING PHYSICIAN: INTERPRETING PHYSICIAN: TAI GRADY MD ECHOCARDIOGRAM REPORT ECHO CHARGES 4 ECHO COMPLETE CLINICAL DIAGNOSIS: HTN/CAD RECENT STENTS/HX OF LEFT ENDARTECTOMY ECHOCARDIOGRAPHIC MEASUREMENTS (adult normal given) AC root (d.<3.7cm) 3.6 cm LV Septum d (<1.2 cm> 1.9 cm Valve Excursion 2.0 cm LV Septum (systole) 2.1 cm Left Atria (s.<4.0cm> 5.0 cm LVPW d(<1.2cm) 1.7 cm RV (d.<2.3cm) 4.5 cm LVPW (sytole) 2.2 cm LV diastole(<5.6CM) 5.6 cm MV E-F(>70mm/sec) cm LV systole 3.9 cm LVOT Diameter 2.0 cm MV exc.(>10mm) cm Est.ejection fraction (50-75%) % Pericardial Effusion N DOPPLER: LVIT cm/sec A 32.0 cm/sec E 109 cm/sec LA cm/sec RVSP 39 mmHg LVOT 124 cm/sec AOP1/2T 766 m/s Asc. Ao 204 cm/sec RVOT 82 cm/sec RA cm/sec PA 120 cm/sec AV Gradient Peak 16.70mmHg AV Mean 7.90 mmHg AV Area 2.3 cm MV Gradient Peak 7.08 mmHg MV Mean 2.19 mmHg MV Area cm COMMENTS: Vessel Engineer: Richard PINO Field Care Advocate: 1 Dr. Grady TAPE# PACS DATE OF SERVICE: 04/22/2017 FINDINGS: 1. Left ventricular chamber size is within normal limits. Left ventricular systolic function is normal. Overall ejection fraction estimated at 60%. 2. Left atrium is enlarged at 5.0 cm. Right atrium and right ventricular chamber sizes are as well moderately dilated. 3. Valvular structures: Aortic valve demonstrates calcific aortic sclerosis, but no significant aortic stenosis. The remaining valvular structures have normal structure and motion. ECHOCARDIOGRAM REPORT [id number] PARADISE BAR 4. Doppler interrogation reveals mild aortic insufficiency, mild tricuspid regurgitation, no other valvular insufficiency or stenosis. Pulmonary systolic pressure is estimated at 39 mmHg. 5. No evidence of pericardial effusion or left ventricular thrombus. TRANSINT:[id number] Voice Confirmation ID: [id number] DOCUMENT ID: [id number] TAI GRADY MD at 1352 CC: [id number] DICTATION DATE: 04/22/17 1631 DJ INSTRUCTOR: 04/22/17 2142 [facility] CLI 04/22/17 [place] [id number]
== END | disposition home or self-care (01) ==
LOC: D.ECHO 09:00
DX: I10 Essential (primary) hypertension (principal); I25.10 Atherosclerotic heart disease of native coronary artery without angina pectoris

== ENCOUNTER → 2017-07-23 15:40 | Outpatient (CLI) | payer MEDICARE, OTHER ==
[2017-02-26 16:19] VITALS: BMI 38.4
== END | disposition home or self-care (01) ==
LOC: D.CT 15:40
DX: R31.9 Hematuria, unspecified (principal)

== ENCOUNTER → 2017-09-13 08:25 | Outpatient (CLI) | payer MEDICARE, OTHER ==
[2017-02-26 16:19] VITALS: BMI 38.4
== END | disposition home or self-care (01) ==
LOC: D.RT 09-07 14:00 → D.RAD 09-07 15:15 → D.RT 08:00
DX: J45.909 Unspecified asthma, uncomplicated (principal)

== ENCOUNTER → 2017-10-01 07:56 | Outpatient (CLI) | payer MEDICARE, OTHER ==
[2017-02-26 16:19] VITALS: BMI 38.4
== END | disposition home or self-care (01) ==
LOC: D.NM 07:56
DX: M25.562 Pain in left knee (principal)

== ENCOUNTER → 2017-11-02 10:02 | Outpatient (CLI) | payer MEDICARE, OTHER ==
[2017-02-26 16:19] VITALS: BMI 38.4
== END | disposition home or self-care (01) ==
LOC: D.RAD 10:00
DX: J45.901 Unspecified asthma with (acute) exacerbation (principal)

== ENCOUNTER → 2018-02-22 09:37 | Outpatient (CLI) | payer MEDICARE, OTHER ==
[2017-02-26 16:19] VITALS: BMI 38.4
[~2018-02-22 09:37] MED LIST changes: +DILAUDID2 MG PO; +MAG-OXIDE400 MG PO; +ROBAXIN-750750 MG PO; +SINGULAIR10 MG PO; +VISTARIL50 MG PO; +ZOFRAN ODT4 MG/UDTAB PO
== END | disposition home or self-care (01) ==
LOC: D.US 09:37
DX: I65.23 Occlusion and stenosis of bilateral carotid arteries (principal)

== ENCOUNTER → 2018-03-03 13:24 | Outpatient (CLI) | payer MEDICARE, OTHER ==
[2017-02-26 16:19] VITALS: BMI 38.4
== END | disposition home or self-care (01) ==
LOC: D.MRI 13:24
DX: M25.511 Pain in right shoulder (principal)

== ENCOUNTER 2018-04-01 07:00 | Day surgery (SDC) | payer MEDICARE, OTHER ==
[2018-03-31 09:21] LABS: HEMATOCRIT 39.7 % (42.0-54.0); HEMOGLOBIN 13.4 g/dL (13.5-17.5); MCH 30.6 pg (26.0-34.0); MCHC 33.8 g/dL (31.0-37.0); MCV 90.6 fL (80.0-100.0); MEAN PLATELET VOLUME 10.6 fL (7.4-10.4); RBC 4.38 10x6/uL (4.20-6.10); WBC 6.7 10x3/uL (4.8-10.8)
[2018-03-31 09:35] LABS: ANION GAP 9.2 mmol/L (8-16); CALCIUM 8.8 mg/dL (8.5-10.1); CARBON DIOXIDE 32.8 mmol/L (21.0-32.0); CREATININE - SERUM 1.1 mg/dL (0.6-1.3)
[2018-03-31 09:40] LABS: APTT 29.9 SECONDS (22.8-39.4); PROTIME 12.8 SECONDS (11.6-15.0)
[~2018-04-01] VITALS: Ht 182.9 cm; Wt 115.2 kg
--- NOTE | ~2018-04-01 | OP ---
PATIENT NAME: PARADISE BAR MEDICAL RECORD: [id number] :49 LOCATION:[facility] ADMISSION DATE: SURGEON: BOSTON GUARDADO DO DATE OF OPERATION: 04/01/2018 PROCEDURE PERFORMED: Right shoulder arthroscopy with distal clavicle excision and subacromial decompression and open bicep tenodesis. PREOPERATIVE DIAGNOSES: Right shoulder AC joint arthritis, subacromial impingement, SLAP tear and right shoulder pain. POSTOPERATIVE DIAGNOSES: Right shoulder AC joint arthritis, subacromial impingement, SLAP tear and right shoulder pain. INDICATIONS: Mr. Bar is a 72-year-old male who presented to my office sometime ago. He has had right shoulder pain with reaching over his head for quite some time and he was tired of dealing with it, had done some therapy and injections and wanted something done. I informed him that we could get a look at his rotator cuff and if there were any full-thickness tears, we did take care of them. At the same time, we do a subacromial decompression, distal clavicle excision and biceps tenodesis due to the fact he likely had a labral tear due to his exam findings as well as a subacromial impingement. He was okay with that and was informed of the risks and benefits as well as the pre and postop protocols. SURGEON: Boston Guardado DO DESCRIPTION OF THE PROCEDURE: The patient was given a block by anesthesia in the preoperative area and was taken to the operative suite, laid in the left lateral recumbent position with the right arm up. The right arm was prepped and draped in sterile fashion after the patient had had an LMA placed and given clindamycin preoperatively. After he was given the antibiotic, a timeout was performed and everyone was in agreement as to the correct side, site, patient, and procedure. The right shoulder was then entered with an 18-gauge spinal needle into the joint and was insufflated with 60 mL of normal saline. The posterior portal was then established with an 11-blade scalpel and the shoulder joint was entered with the trocar. The camera was then entered in. The inspection of began of the articular surface, which did not show any defects or any chondromalacia. The rotator cuff did appear to be intact on the articular side as well and the anterior portal was established with an 18-gauge spinal needle and 11-blade scalpel. Then, a burner was brought in through the anterior portal. The bicep tendon was inspected, seemed to be frayed as well as the SLAP tear was noted. The subscapularis tendon was inspected as well and was very intact. The rotator cuff was then inspected. Supraspinatus, infraspinatus and teres minor were inspected and the inferior gutter of the shoulder joint was inspected and seemed to be all well. All the rotator cuff tendons were intact. We then, after the bicep tendon had been tenotomized, went up to the subacromial space and the lateral portal was established with an 18-gauge spinal needle. Then, a burner was entered in, the acromion was cleaned off as well as the AC joint and then a bur was used. He had quite a large spur in the acromion and some osteophytes in the AC joint itself. The distal clavicle was excised opening up the joint to 7 mm and the subacromial spur that was seen on the acromion was removed as well with the shaver. The rotator cuff was then inspected thoroughly on the bursal side. The bursa was removed and all the cuff insertion was inspected and no tears were seen. The arm was rotated internally OPERATIVE REPORT [id number] PARADISE BAR and externally and no tears were seen on the bursal side either. The scope was then withdrawn. An incision began over the pec region of the anterior arm over the pec insertion. Careful dissection was made down to encounter the biceps tendon itself. It was removed from the wound, whipstitched, and then a drill placed on a button. The suture was then placed over the button and then a drill was used to punch unicortically through the humerus and the button was cinched down flipping unicortically on the anterior surface of the humerus and then tied down and oversewn and the excess tendon and suture was cut. The wound was then thoroughly irrigated and closed with 2-0 Vicryl and 4-0 Monocryl running on the skin and the portal sites of the anterior, lateral and posterior portal sites were all closed with 4-0 Monocryl in inverted interrupted fashion. The patient was then awakened and taken to recovery in stable condition. ESTIMATED BLOOD LOSS: Minimal. COMPLICATIONS: None. TRANSINT:[id number] Voice Confirmation ID: [id number] DOCUMENT ID: [id number] SALMERON DO at 1322 CC: [id number] DICTATION DATE: 04/01/18 1202 SLIDE FASTENERS INSPECTOR: 04/01/18 1254 [facility] 04/01/18 [place] [id number] [place] [address]
[~2018-04-01 07:00] MED LIST changes: -DILAUDID2 MG PO; -VISTARIL50 MG PO; -ZOFRAN ODT4 MG/UDTAB PO
[2018-04-01 08:42] VITALS: BP 109/58; Ht 182.9 cm; Wt 115.2 kg
[2018-04-01] MEDS ORDERED: DILAUDID2 MG PO (09:36)
[2018-04-01] MEDS ORDERED: VISTARIL50 MG PO (09:37)
[2018-04-01] MEDS ORDERED: ZOFRAN ODT4 MG/UDTAB PO (09:37)
== END 2018-04-01 14:00 | disposition home or self-care (01) ==
LOC: D.OPS 07:00 → D.PAN 07:30 → D.OPS 08:45 → D.PAN 08:45 → D.OPS 09:15
PROVIDERS: Anesthesiology
DX: M13.811 Other specified arthritis, right shoulder (principal); M75.41 Impingement syndrome of right shoulder; S43.431A Superior glenoid labrum lesion of right shoulder, initial encounter; X58.XXXA Exposure to other specified factors, initial encounter; Z01.812 Encounter for preprocedural laboratory examination

== ENCOUNTER → 2018-06-15 10:52 | Outpatient (CLI) | payer MEDICARE, OTHER ==
[2018-04-01 08:42] VITALS: BMI 34.5
[~2018-06-15 10:52] MED LIST changes: +DILAUDID2 MG PO; +VISTARIL50 MG PO; +ZOFRAN ODT4 MG/UDTAB PO
== END | disposition home or self-care (01) ==
LOC: D.MRI 10:52
DX: M75.121 Complete rotator cuff tear or rupture of right shoulder, not specified as traumatic (principal)

== ENCOUNTER 2018-07-01 08:47 | Day surgery (SDC) | payer MEDICARE, OTHER ==
[2018-06-30 12:16] LABS: HEMATOCRIT 39.2 % (42.0-54.0); HEMOGLOBIN 13.3 g/dL (13.5-17.5); MCH 30.2 pg (26.0-34.0); MCHC 33.9 g/dL (31.0-37.0); MCV 89.1 fL (80.0-100.0); MEAN PLATELET VOLUME 10.2 fL (7.4-10.4); RBC 4.4 10x6/uL (4.20-6.10); WBC 6.2 10x3/uL (4.8-10.8)
[2018-06-30 12:30] LABS: CALC OSMOLALITY 280 mosm/kg (275-300); CALCIUM 8.8 mg/dL (8.5-10.1); CARBON DIOXIDE 31.3 mmol/L (21.0-32.0); CHLORIDE - SERUM 102 mmol/L (98-107); CREATININE - SERUM 0.9 mg/dL (0.6-1.3); GLUCOSE 97 mg/dL (74-106); POTASSIUM - SERUM 4.2 mmol/L (3.5-5.1); SODIUM 140 mmol/L (136-145); UREA NITROGEN 18 mg/dL (7-18); eGFR NON AFRICAN AMERICAN 88 mL/min (90-120)
[~2018-07-01] VITALS: Ht 182.9 cm; Wt 117.9 kg
--- NOTE | ~2018-07-01 | OP ---
PATIENT NAME: PARADISE BAR MEDICAL RECORD: [id number] :49 LOCATION:[facility] ADMISSION DATE: SURGEON: BOSTON GUARDADO DO DATE OF OPERATION: 07/01/2018 PROCEDURE PERFORMED: Right shoulder arthroscopy with mini open rotator cuff repair. PREOPERATIVE DIAGNOSIS: Right shoulder rotator cuff tear. POSTOPERATIVE DIAGNOSIS: Right shoulder rotator cuff tear. INDICATIONS: Mr. Bar is a 73-year-old male who had his SLAP tear, had a biceps tenodesis and a subacromial decompression done. Approximately 3 months ago, he was lifting a 4-ruiz and felt a pop in his shoulder and he had an MRI, which indeed showed a rotator cuff tear. I explained to him we could do nothing, we could try to fix it and he can do therapy, but he said that he has been trying therapy and the pain was unbearable and he had start of the weakness in that arm. After knowing that he is aware of the risks and benefits of the procedure including infection, bleeding, damage to nerves and vessels, need for further surgery, retear of the rotator cuff. He is okay with that and consented to the procedure. SURGEON: Boston Guardado DO DESCRIPTION OF THE PROCEDURE: The patient was given 900 mg of clindamycin preoperatively, was given a block by anesthesia in the preoperative area and taken to the operative suite, laid in the left lateral decubitus position with the right shoulder up. The shoulder was prepped and draped in sterile fashion. A timeout was performed and everyone was in agreement with the correct side, site, patient and procedure. The shoulder joint was then insufflated with 60 mL of normal saline and the shoulder joint was entered after 11 blade scalpel was used to establish the posterior portal. The joint was inspected. No loose bodies were seen in the joint and everything appeared to be in good condition. There was a small rotator cuff seen on the articular side. The bursal side was then inspected and the bursal-sided tear was indeed encountered. It was cleared off and marked with an 18-gauge spinal needle. The incision then on the lateral aspect of the shoulder had been established prior to this. An 18-gauge spinal needle and then an 11-blade scalpel and a shaver been used there. This was opened up more and dissection was made down to the rotator cuff tear. This tear was then exposed and the bursa was removed over the top of it and a SpeedBridge was used. Anchors were put in, anterior and posterior and then the Scorpion needle was used to put the sutures through the tendon and was pulled laterally to 2 lateral row, 2 anchors laterally. The cuff was then inspected and seemed to be a good repair and a single stitch was put just anterior to the repair site to get a more robust repair. This was tied down. This was used from one of the lateral row anchors where the suture was and then the wound was thoroughly irrigated and closed with 0 Vicryl in the deltoid fascia, then 2-0 Vicryl and the skin in inverted interrupted fashion, 4-0 Monocryl ran on the skin and then posterior portals closed with 4-0 Monocryl in a simple interrupted pattern. Dermabond was then placed on these incisions. Telfa and Tegaderm were placed on that and the patient was awakened and taken to recovery in stable condition. Blood loss was minimal. COMPLICATIONS: None. OPERATIVE REPORT [id number] PARADISE BAR TRANSINT:[id number] Voice Confirmation ID: [id number] DOCUMENT ID: [id number] BOSTON GUARDADO DO at 0921 CC: [id number] DICTATION DATE: 07/01/18 1345 SUPERVISOR LITHARGE: 07/01/181999 [facility] 07/01/18 [facility] [address] [place] [address]
[2018-07-01 09:09] VITALS: BP 122/72; Ht 182.9 cm; Wt 117.9 kg
[2018-07-01] MEDS ORDERED: DILAUDID2 MG PO (13:38)
[2018-07-01] MEDS ORDERED: VISTARIL50 MG PO (13:38)
[2018-07-01] MEDS ORDERED: ULTRAM50 MG PO (13:38)
[2018-07-01] MEDS ORDERED: ZOFRAN ODT4 MG/UDTAB PO (13:40)
== END 2018-07-01 16:55 | disposition home or self-care (01) ==
LOC: D.OPS 08:47 → D.PAN 11:00 → D.OPS 11:45
PROVIDERS: Anesthesiology
DX: M75.111 Incomplete rotator cuff tear or rupture of right shoulder, not specified as traumatic (principal); Z01.812 Encounter for preprocedural laboratory examination

== ENCOUNTER 2018-12-22 13:37 | Emergency (ER) | payer MEDICARE, OTHER ==
[2018-12-22 13:42] VITALS: BMI 37.4
[2018-12-22 16:55] VITALS: BP 179/83
== END 2018-12-22 16:57 | disposition home or self-care (01) ==
LOC: D.ER 13:37
DX: M54.16 Radiculopathy, lumbar region (principal)

== ENCOUNTER → 2019-03-17 09:51 | Outpatient (CLI) | payer MEDICARE, OTHER | END | disposition home or self-care (01) | LOC: D.US 09:51 | PROVIDERS: ATTEND Internal Medicine Cardiovascular Disease | DX: I65.23 Occlusion and stenosis of bilateral carotid arteries (principal) ==

== ENCOUNTER → 2019-07-10 20:41 | Outpatient (CLI) | payer MEDICARE, OTHER ==
[2019-07-10 20:53] LABS: BASOPHILS 0.3 % (0-2); EOSINOPHILS 2.1 % (0-7); HEMATOCRIT 40.8 % (42.0-54.0); HEMOGLOBIN 13.2 g/dL (13.5-17.5); IMMATURE GRANULOCYTES 0.3 % (0-5); LYMPHOCYTES 21.7 % (15-50); MCH 30.3 pg (26.0-34.0); MCHC 32.4 g/dL (31.0-37.0); MCV 93.8 fL (80.0-100.0); MEAN PLATELET VOLUME 10.5 fL (7.4-10.4); MONOCYTES 10.3 % (2-11); NEUTROPHILS 65.3 % (40-80); PLATELET COUNT 242 10x3/uL (130-400); RBC 4.35 10x6/uL (4.20-6.10); RDW 13.9 % (11.5-14.5); WBC 6.6 10x3/uL (4.8-10.8)
[2019-07-10 21:58] LABS: ERYTHROCYTE SEDIMENTATION RATE 11 mm/hr (0-20)
== END | disposition home or self-care (01) ==
LOC: D.LABREF 20:41
PROVIDERS: ATTEND Orthopaedic Surgery
DX: M25.562 Pain in left knee (principal)

== ENCOUNTER → 2019-07-11 08:49 | Outpatient (CLI) | payer MEDICARE, OTHER | END | disposition home or self-care (01) | LOC: D.LABREF 08:49 | PROVIDERS: ATTEND Orthopaedic Surgery | DX: M25.561 Pain in right knee (principal) ==

== ENCOUNTER → 2019-07-14 06:56 | Outpatient (CLI) | payer MEDICARE, OTHER | END | disposition home or self-care (01) | LOC: D.NM 06:56 | PROVIDERS: ATTEND Orthopaedic Surgery | DX: M25.561 Pain in right knee (principal) ==

== ENCOUNTER 2019-08-23 14:53 | Emergency (ER) | payer MEDICARE, OTHER ==
[2019-08-23 14:59] VITALS: Ht 182.9 cm
[2019-08-23 15:29] LABS: BASOPHILS 0.1 % (0-2); EOSINOPHILS 1.1 % (0-7); HEMATOCRIT 42.5 % (42.0-54.0); HEMOGLOBIN 14.4 g/dL (13.5-17.5); IMMATURE GRANULOCYTES 0.5 % (0-5); LYMPHOCYTES 16.1 % (15-50); MCH 30.5 pg (26.0-34.0); MCHC 33.9 g/dL (31.0-37.0); MEAN PLATELET VOLUME 10.2 fL (7.4-10.4); MONOCYTES 11.6 % (2-11); NEUTROPHILS 70.6 % (40-80); PLATELET COUNT 226 10x3/uL (130-400); RBC 4.72 10x6/uL (4.20-6.10); RDW 13.7 % (11.5-14.5); WBC 8.2 10x3/uL (4.8-10.8)
[2019-08-23 15:56] LABS: CALC OSMOLALITY 277 mosm/kg (275-300); CALCIUM 9.1 mg/dL (8.5-10.1); CARBON DIOXIDE 31.6 mmol/L (21.0-32.0); CHLORIDE - SERUM 100 mmol/L (98-107); CREATININE - SERUM 1.1 mg/dL (0.6-1.3); GLUCOSE 67 mg/dL (74-106); POTASSIUM - SERUM 3.9 mmol/L (3.5-5.1); SODIUM 140 mmol/L (136-145); UREA NITROGEN 16 mg/dL (7-18); eGFR NON AFRICAN AMERICAN 70 mL/min (90-120)
[2019-08-23 16:07] LABS: APPEARANCE CLEAR (CLEAR); BILIRUBIN NEGATIVE (NEGATIVE); COLOR YELLOW (YELLOW); GLUCOSE NEGATIVE (NEGATIVE); KETONE NEGATIVE (NEGATIVE); NITRITE NEGATIVE (NEGATIVE); PROTEIN NEGATIVE (NEGATIVE); UROBILINOGEN NORMAL (NORMAL)
[2019-08-23 16:10] LABS: ALKALINE PHOSPHATASE 65 U/L (46-116); ALT (SGPT) 25 U/L (10-68); BILIRUBIN - TOTAL 0.35 mg/dL (0.2-1.3); CKMB 3.2 U/L (0.0-3.6); CREATINE KINASE 291 UL (21-232); PRO BNP 90 pg/mL (0-125); PROTEIN - SERUM 7.3 g/dL (6.4-8.2); TROPONIN-I < 0.017 ng/mL (0.000-0.060)
[2019-08-23] MEDS ORDERED: ZPAK PO (16:33)
[2019-08-23] MEDS ORDERED: MUCINEX DM ER1 EAC1 PO (16:33)
[2019-08-23 17:06] VITALS: BP 135/74
== END 2019-08-23 17:07 | disposition home or self-care (01) ==
LOC: D.ER 14:53
PROVIDERS: Emergency Medicine
DX: J40 Bronchitis, not specified as acute or chronic (principal); J06.9 Acute upper respiratory infection, unspecified; R53.1 Weakness; I10 Essential (primary) hypertension; Z95.5 Presence of coronary angioplasty implant and graft; I25.10 Atherosclerotic heart disease of native coronary artery without angina pectoris; M54.9 Dorsalgia, unspecified; K21.9 Gastro-esophageal reflux disease without esophagitis; N40.0 Benign prostatic hyperplasia without lower urinary tract symptoms

== ENCOUNTER → 2019-09-12 12:41 | Outpatient (CLI) | payer MEDICARE, OTHER ==
[~2019-09-12 12:41] MED LIST changes: +MUCINEX DM ER1 EAC1 PO; +ZPAK PO
== END | disposition home or self-care (01) ==
LOC: D.RT 12:41
PROVIDERS: ATTEND Internal Medicine Pulmonary Disease
DX: J45.909 Unspecified asthma, uncomplicated (principal)

== ENCOUNTER → 2020-03-19 13:01 | Outpatient (CLI) | payer MEDICARE, OTHER | END | disposition home or self-care (01) | LOC: D.US 13:01 | PROVIDERS: ATTEND Internal Medicine Cardiovascular Disease | DX: I65.29 Occlusion and stenosis of unspecified carotid artery (principal) ==

== ENCOUNTER → 2021-02-17 09:17 | Outpatient (CLI) | payer MEDICARE, OTHER | END | disposition home or self-care (01) | LOC: D.NM 09:17 | PROVIDERS: ATTEND Family Medicine | DX: R10.9 Unspecified abdominal pain (principal) ==